=== PATIENT | male | born 1935 ===

== ENCOUNTER 2019-07-23 09:40 | Emergency (ER) | payer SELFPAY ==
[~2019-07-23] VITALS: Ht 175.3 cm; Wt 59.0 kg
[2019-07-23] MEDS ORDERED: NOREPINEPHRINE 8 MG/250ML KIT 250 ML IV ONE (10:01)
[2019-07-23] MEDS: MIDAZOLAM DRIP 50 mg/50mL 50 ML IV SCH (10:05)
[2019-07-23] MEDS ORDERED: SODIUM CHLORIDE 0.9% 1,000 ML IV ONE (10:06)
[2019-07-23] MEDS ORDERED: NOREPINEPHRINE 8 MG/250ML KIT 250 ML IV SCH (10:15)
[2019-07-23 10:24] LABS: Hematocrit 35.6 % (41.0-53.0); Hemoglobin 11.9 g/dL (13.5-17.5); Mean Corpuscular Hemoglobin 30.5 pg (28.0-32.0); Mean Corpuscular Hgb Conc. 33.3 g/dL (32.0-36.0); Mean Corpuscular Volume 91.5 fL (80.0-100.0); Platelet Count (auto) 128 10^3/uL (140-450); Red Blood Cells 3.89 10^6/uL (4.5-5.90); Red Cell Distribution Width 15.1 % (11.8-14.3); White Blood Cell 12.9 10^3/uL (4.4-10.8)
[2019-07-23] MEDS ORDERED: PROPOFOL 100 ML IV ONE (10:24)
[2019-07-23 10:34] LABS: Urine Bacteria NONE SEEN /hpf (None Seen); Urine Blood 2+ /uL (Negative); Urine Hyaline Cast MOD /lpf (0 - 2); Urine Specific Gravity 1.016 (1.001-1.035); Urine WBC 4 /hpf (0 - 3)
[2019-07-23 10:35] LABS: Basophils % (manual) 0 (0.0-2.0); Blast Cells 0; Eosinophils % (manual) 0 (0-7); Myelocytes % 0; Promyelocytes % 0; Reactive Lymphocytes 0
[2019-07-23 10:39] LABS: INR 1.75 (0.9-1.15); Partial Thromboplastin Time 48.2 sec (23.64-32.05)
[2019-07-23 10:41] LABS: Albumin 1.6 g/dL (3.4-5.0); Anion Gap 18 (5-15); Calcium 7.7 mg/dL (8.5-10.1); Carbon Dioxide 17 mmol/L (21-32); Chloride 94 mmol/L (98-107); Glucose 129 mg/dL (74-106); Potassium 3.1 mmol/L (3.5-5.1); Sodium 129 mmol/L (136-145)
[2019-07-23] MEDS ORDERED: PROPOFOL 100 ML IV SCH (10:41)
[2019-07-23 10:42] LABS: Alcohol, Urine < 3.0 mg/dL (0-5); Amphetamine Screen, Urine POSITIVE (NEGATIVE); Barbiturate Scree,Urine NEGATIVE (NEGATIVE); Benzodiazephine Screen, Urine NEGATIVE (NEGATIVE); Cannabinoid Screen, Urine NEGATIVE (NEGATIVE); Cocaine Screen, Urine NEGATIVE (NEGATIVE); Opiate Scree,Urine NEGATIVE (NEGATIVE); Phencyclidine Screen, Urine NEGATIVE (NEGATIVE)
[2019-07-23 10:49] LABS: Alanine Aminotransferase 80 U/L (16-61); Alkaline Phosphatase 136 U/L (45-117); Aspartate Aminotransferase 140 U/L (15-37); BUN/Creatinine Ratio 31.4; Bilirubin, Total 0.7 mg/dL (0.2-1.0); GFR African American 19 mL/min; GFR Non-African American 16 mL/min; Total Protein 5.5 g/dL (6.4-8.2)
[2019-07-23 10:50] LABS: Blood Alcohol < 3.0 mg/dL (0-5)
[2019-07-23 10:52] LABS: Blood Urea Nitrogen 120 mg/dL (7-18)
[2019-07-23 11:06] LABS: Lactic Acid w/Reflex 6.3 mmol/L (0.4-2.0)
[2019-07-23 11:16] LABS: Band Neutrophils % (manual) 19; Lymphocytes % (manual) 8 (10.0-50.0); Metamyelocytes % 1; Monocytes % (manual) 1 (0-12)
[2019-07-23] MEDS ORDERED: cefTRIAXone 1GM/50ML D5W 50 ML IV ONE (12:15)
[2019-07-23 13:30] VITALS: BP 86/58
== END 2019-07-23 14:17 | disposition short-term general hospital (02) ==
LOC: EDBD 09:40 → ER 09:40
DX: S06.5X9A Traumatic subdural hemorrhage with loss of consciousness of unspecified duration, initial encounter (principal); A41.9 Sepsis, unspecified organism; R41.82 Altered mental status, unspecified; G93.41 Metabolic encephalopathy; D47.3 Essential (hemorrhagic) thrombocythemia; D69.6 Thrombocytopenia, unspecified; E87.2 Acidosis; E87.6 Hypokalemia; I48.20 Chronic atrial fibrillation, unspecified; E83.41 Hypermagnesemia; E87.1 Hypo-osmolality and hyponatremia; T68.XXXA Hypothermia, initial encounter; R74.8 Abnormal levels of other serum enzymes; E43 Unspecified severe protein-calorie malnutrition; Z68.1 Body mass index [BMI] 19.9 or less, adult; X58.XXXA Exposure to other specified factors, initial encounter; Y93.89 Activity, other specified; Y92.89 Other specified places as the place of occurrence of the external cause; Y99.8 Other external cause status
CPT/HCPCS: 31500; 36415; 36600; 51702; 70450; 71045; 80053; 80307; 80320; 81001; 82805; 83605; 83735; 84443; 84484; 85007; 85027; 85610; 85730; 87040; 87070; 87077; 87186; 87205; 93005; 94002; 96365; 96367; 99291; J0696; J2250; J2704; J7030